=== PATIENT | male | born 1950 | race Caucasian/White ===

== ENCOUNTER → 2018-01-30 | Outpatient (CLI) | payer MEDICARE ==
[~2018-01-30] MED LIST: AMPH30CA6 PO; ARIP10TA33 PO; BUPR150T73 PO; CARB1TAB5 PO; CLON1TAB PO; DOCU-131 PO; ESCI10TA10 PO; EXELON TD; GABA300C PO; LAMO150T3 PO; LOSA100T6 PO; MULT-516 PO; OXYC-307 PO; RASA1TAB2 PO; SENN-87 PO; SOLI10TA2 PO; TAMS-11 PO; TRAZ50TA18 PO; ZOLP10TA PO
[2018-01-30 15:43] LABS: BASOPHILS # (AUTO) 0.03 x10^3/uL (0-0.1); BASOPHILS % (AUTO) 1 % (0-1); EOSINOPHILS # (AUTO) 0.24 x10^3/uL (0-0.4); EOSINOPHILS % (AUTO) 4 % (1-7); LYMPHOCYTES # (AUTO) 1.98 x10^3/uL (1-3.4); LYMPHOCYTES % (AUTO) 29 % (22-44); MD NO; MEAN CORPUSCULAR HEMOGLOBIN 32.2 pg (27.5-34.5); MEAN CORPUSCULAR HGB CONC 33.7 g/dL (33.2-36.2); MEAN CORPUSCULAR VOLUME 95.4 fL (81-97); MEAN PLATELET VOLUME 7.8 fL (7.4-10.4); MONOCYTES # (AUTO) 0.56 x10^3/uL (0.2-0.8); MONOCYTES % (AUTO) 8 % (2-9); NEUTROPHILS # (AUTO) 3.99 x10^3/uL (1.8-6.8); NEUTROPHILS % (AUTO) 59 % (42-75); PLATELET COUNT 243 x10^3/uL (130-400); RED BLOOD COUNT 4.53 x10^6/uL (4.38-5.82); RED CELL DISTRIBUTION WIDTH 15.1 % (9.4-14.8)
[2018-01-30 15:44] LABS: MICROSCOPIC NOT IND
[2018-01-30 15:47] LABS: CULTURE INDICATED? NO
[2018-01-30 15:56] LABS: ALANINE AMINOTRANSFERASE 25 U/L (12-78); ALBUMIN 3.9 g/dL (3.4-5.0); ANION GAP 6 mmol/L (5-15); CHLORIDE 109 mmol/L (98-107)
[2018-01-30 16:04] LABS: ALKALINE PHOSPHATASE 98 U/L (45-117); BILIRUBIN,TOTAL 0.4 mg/dL (0.2-1.0); CREATININE 0.92 mg/dL (0.7-1.3); TOTAL PROTEIN 7.3 g/dL (6.4-8.2)
== END ==
LOC: STAR 14:34
PROVIDERS: ATTEND Orthopaedic Surgery
DX: M17.12 Unilateral primary osteoarthritis, left knee (principal); R79.89 Other specified abnormal findings of blood chemistry
CPT/HCPCS: 36415; 80053; 81003; 85025; 87081; 93005

== ENCOUNTER 2018-02-14 07:48 | Inpatient (IN) | payer MEDICARE ==
[~2018-02-14] VITALS: Ht 177.8 cm; Wt 97.5 kg
[~2018-02-14 07:48] MED LIST changes: +EPINEPHRINE 1 MG/ML, 1ML ONE; +KETOROLAC 60 MG/2 ML ONE; +ROPIvacaine/PF 0.2%, 20 ML ONE; +SODIUM CHLORIDE 0.9% 100 ML ONE; +TRANEXAMIC ACID 100 MG/ML, 10ML ONE
[2018-02-14] MEDS ORDERED: MIDAZOLAM 1 MG/ML, 2ML ONE (08:19)
[2018-02-14] MEDS ORDERED: FENTANYL PF 100 MCG/2ML ONE (08:19)
[2018-02-14] MEDS ORDERED: GABA600T2 PO (08:24)
[2018-02-14] MEDS ORDERED: ARIP15TA3 PO (08:24)
[2018-02-14] MEDS ORDERED: ESCI20TA PO (08:24)
[2018-02-14 08:28] VITALS: BP 118/78
[2018-02-14] MEDS ORDERED: LIDOCAINE-MPF 1%, 2ML ONE (08:33)
[2018-02-14] MEDS: LACTATED RINGERS 1,000 ML IV SCH ×2 (08:44→13:07)
[2018-02-14] MEDS ORDERED: LIDOCAINE-MPF 1%, 2ML INFIL ONE (09:00)
[2018-02-14] MEDS ORDERED: ACETAMINOPHEN 650 MG/20.3 ML UDC PO SCH (09:30)
[2018-02-14] MEDS ORDERED: ONDANSETRON 2MG/ML, 2ML IV PRN (09:30)
[2018-02-14] MEDS ORDERED: PROMETHAZINE 25 MG/ML, 1ML IM PRN (09:30)
[2018-02-14] MEDS ORDERED: SENNA/DOCUSATE TABLET PO PRN (09:30)
[2018-02-14] MEDS ORDERED: MAGNESIUM HYDROXIDE 8%, 30ML UDC PO PRN (09:30)
[2018-02-14] MEDS ORDERED: HYDROmorphone 1 MG/ML, 1ML IV PRN (09:30)
[2018-02-14] MEDS ORDERED: BISACODYL 10 MG SUPP PR PRN (09:30)
[2018-02-14] MEDS ORDERED: DIPHENHYDRAMINE 25 MG CAPSULE PO PRN (09:30)
[2018-02-14] MEDS ORDERED: ALUMINUM/MAG/SIMETHICONE 30 ML UDC PO PRN (09:30)
[2018-02-14] MEDS ORDERED: PROMETHAZINE 12.5 MG SUPP PR PRN (09:30)
[2018-02-14] MEDS ORDERED: ONDANSETRON 4 MG TABLET PO PRN (09:30)
[2018-02-14] MEDS ORDERED: LORazepam 1MG TABLET PO PRN (09:30)
[2018-02-14] MEDS ORDERED: morphine SULFATE 10 MG/ML, 1ML IV PRN (10:00)
[2018-02-14] MEDS ORDERED: ACETAMINOPHEN 325 MG TABLET PO PRN (10:00)
[2018-02-14] MEDS ORDERED: ONDANSETRON 2MG/ML, 2ML IVPush PRN (10:00)
[2018-02-14] MEDS ORDERED: OXYcodone 5 MG/5 ML ORAL.SOL UDC PO PRN (10:00)
[2018-02-14] MEDS ORDERED: FENTANYL PF 100 MCG/2ML IV PRN (10:00)
[2018-02-14] MEDS ORDERED: HYDROcodone/APAP 7.5-325MG/15ML UDC PO PRN (10:00)
[2018-02-14] MEDS ORDERED: TRANEXAMIC ACID 1,000 MG in SODIUM CHLORIDE 0.9% 100 ML IVPB ONE (11:00)
[2018-02-14 13:00] VITALS: BP 138/86
[2018-02-14 13:09] VITALS: BP 138/87
[2018-02-14] MEDS ORDERED: CEFAZOLIN PMX 2GM/50ML 50 ML IVPB SCH (14:00)
[2018-02-14] MEDS: TAMSULOSIN 0.4 MG CAP.ER.24H PO SCH (14:58)
[2018-02-14] MEDS: CEFAZOLIN 2,000 MG in DEXTROSE 5% 50 ML IV SCH ×2 (14:58→21:57)
[2018-02-14] MEDS: D5%-0.45% NACL 1,000 ML IV SCH (14:59)
[2018-02-14] MEDS ORDERED: GABAPENTIN 300 MG CAPSULE PO SCH (16:00)
[2018-02-14] MEDS ORDERED: CEFAZOLIN 1,000 MG ONE (16:11)
[2018-02-14] MEDS ORDERED: DEXAMETHASONE 4 MG/ML, 1ML ONE (16:11)
[2018-02-14] MEDS ORDERED: PROPOFOL 10 MG/ML, 50ML ONE (16:11)
[2018-02-14] MEDS: CARBIDOPA/LEVODOPA CR 50 MG/200 MG TABLET PO SCH ×2 (16:17→21:58)
[2018-02-14] MEDS: GABAPENTIN 300 MG CAPSULE PO SCH ×2 (16:17→21:58)
[2018-02-14] MEDS: OXYcodone IR 5MG TABLET PO PRN ×3 (16:17→21:58)
[2018-02-14] MEDS ORDERED: ACETAMINOPHEN 500 MG TABLET ONE (17:34)
[2018-02-14] MEDS: ASPIRIN 81 MG TABLET EC PO SCH (17:47)
[2018-02-14] MEDS: ACETAMINOPHEN 500 MG TABLET PO SCH (17:47)
[2018-02-14] MEDS ORDERED: ASPIRIN 325 MG TABLET EC PO SCH (18:00)
[2018-02-14 19:11] VITALS: BP 104/63
[2018-02-14] MEDS: DIAZEPAM 5 MG TABLET PO PRN (20:41)
[2018-02-14] MEDS: ADDERALL 30 MG PO SCH (21:00)
[2018-02-14] MEDS ORDERED: LEXAPRO 20 MG PO SCH (21:00)
[2018-02-14] MEDS: OXYBUTYNIN CHLORIDE 5 MG TABLET PO SCH (21:58)
[2018-02-14] MEDS: TRAZODONE 100MG TABLET PO SCH (21:58)
[2018-02-14] MEDS: BUPROPION SR 150 MG TABLET PO SCH (21:58)
[2018-02-14] MEDS: DOCUSATE 100 MG CAPSULE PO SCH (21:59)
[2018-02-14] MEDS: LAMOTRIGINE 100 MG TABLET PO SCH (22:10)
[2018-02-14] MEDS: ZOLPIDEM 5MG TABLET PO PRN (22:10)
[2018-02-14 23:37] VITALS: BP 90/61
[2018-02-15] MEDS: D5%-0.45% NACL 1,000 ML IV SCH ×3 (01:42→20:04)
[2018-02-15] MEDS: ACETAMINOPHEN 500 MG TABLET PO SCH ×3 (01:45→16:17)
[2018-02-15] MEDS: OXYcodone IR 5MG TABLET PO PRN ×6 (02:28→23:05)
[2018-02-15 03:35] VITALS: BP 110/65
[2018-02-15] MEDS: ASPIRIN 81 MG TABLET EC PO SCH ×2 (05:49→16:17)
[2018-02-15] MEDS ORDERED: DEXAMETHASONE 4 MG/ML, 1ML IVPush SCH (06:00)
[2018-02-15 07:53] VITALS: BP 108/65
[2018-02-15] MEDS: OXYBUTYNIN CHLORIDE 5 MG TABLET PO SCH (09:00)
[2018-02-15] MEDS: ADDERALL 30 MG PO SCH ×2 (09:00→15:44)
[2018-02-15] MEDS ORDERED: TEMPLATE NON-FORMULARY MED. (VESICARE 10 MG) PO SCH (09:00)
[2018-02-15] MEDS: RASAGILINE PO SCH (09:00)
[2018-02-15] MEDS: EXELON 13.3 MG TP SCH (09:00)
[2018-02-15] MEDS ORDERED: CITALOPRAM 20 MG TABLET PO SCH (09:00)
[2018-02-15] MEDS: BUPROPION SR 150 MG TABLET PO SCH ×2 (09:13→21:22)
[2018-02-15] MEDS: DOCUSATE 100 MG CAPSULE PO SCH ×2 (09:13→21:22)
[2018-02-15] MEDS: LAMOTRIGINE 100 MG TABLET PO SCH ×2 (09:14→21:29)
[2018-02-15] MEDS: CARBIDOPA/LEVODOPA CR 50 MG/200 MG TABLET PO SCH ×3 (09:15→21:23)
[2018-02-15] MEDS: GABAPENTIN 300 MG CAPSULE PO SCH ×2 (09:15→21:22)
[2018-02-15] MEDS: ARIPIPRAZOLE 15 MG TABLET PO SCH (09:16)
[2018-02-15] MEDS: TAMSULOSIN 0.4 MG CAP.ER.24H PO SCH (09:16)
[2018-02-15] MEDS: MULTIVITAMIN 1 TABLET PO SCH (09:16)
[2018-02-15] MEDS: TRAZODONE 100MG TABLET PO SCH ×2 (09:17→21:29)
[2018-02-15] MEDS: KETOROLAC 30 MG/1 ML IV SCH ×2 (09:27→16:17)
[2018-02-15 12:41] VITALS: BP 110/69
[2018-02-15 19:08] VITALS: BP 119/78
[2018-02-15] MEDS: ZOLPIDEM 5MG TABLET PO PRN (21:29)
[2018-02-16] MEDS: KETOROLAC 30 MG/1 ML IV SCH (02:09)
[2018-02-16] MEDS: ACETAMINOPHEN 500 MG TABLET PO SCH ×2 (02:09→09:41)
[2018-02-16 02:15] VITALS: BP 124/87
[2018-02-16] MEDS: OXYcodone IR 5MG TABLET PO PRN ×2 (03:06→07:07)
[2018-02-16] MEDS: D5%-0.45% NACL 1,000 ML IV SCH (05:36)
[2018-02-16] MEDS: ASPIRIN 81 MG TABLET EC PO SCH (06:12)
[2018-02-16] MEDS: DIAZEPAM 5 MG TABLET PO PRN (06:12)
[2018-02-16 06:38] VITALS: BP 122/71
[2018-02-16] MEDS: CARBIDOPA/LEVODOPA CR 50 MG/200 MG TABLET PO SCH (08:43)
[2018-02-16] MEDS: LAMOTRIGINE 100 MG TABLET PO SCH (08:43)
[2018-02-16] MEDS: ARIPIPRAZOLE 15 MG TABLET PO SCH (08:43)
[2018-02-16] MEDS: TRAZODONE 100MG TABLET PO SCH (08:43)
[2018-02-16] MEDS: GABAPENTIN 300 MG CAPSULE PO SCH (08:43)
[2018-02-16] MEDS: DOCUSATE 100 MG CAPSULE PO SCH (08:44)
[2018-02-16] MEDS: MULTIVITAMIN 1 TABLET PO SCH (08:44)
[2018-02-16] MEDS: BUPROPION SR 150 MG TABLET PO SCH (08:44)
[2018-02-16] MEDS: TAMSULOSIN 0.4 MG CAP.ER.24H PO SCH (08:44)
[2018-02-16] MEDS: RASAGILINE PO SCH (08:53)
[2018-02-16] MEDS: ADDERALL 30 MG PO SCH (08:54)
[2018-02-16] MEDS: EXELON 13.3 MG TP SCH (08:55)
[2018-02-16] MEDS ORDERED: SOLIFENACIN PO SCH (09:00)
[2018-02-16] MEDS ORDERED: ESCITALOPRAM PO SCH (09:00)
[2018-02-16] MEDS ORDERED: OXYC5TAB2 PO (11:22)
[2018-02-16] MEDS ORDERED: TRAM50TA2 PO (11:23)
[2018-02-16] MEDS ORDERED: ACET-76 PO (11:24)
[2018-02-16] MEDS ORDERED: ASPI-496 PO (11:24)
== END 2018-02-16 11:38 | disposition home or self-care (01) | DRG 470 ==
LOC: OUT 07:48 → ORIP 09:11 → 4NOR 12:39 → DCLOUNGE 02-16 11:18
PROVIDERS: ADMIT Orthopaedic Surgery; ATTEND Orthopaedic Surgery
PROC: 0SRD0J9 Replacement of Left Knee Joint with Synthetic Substitute, Cemented, Open Approach (ICD-10-PCS; principal; 2018-02-14 12:00)
DX: M17.12 Unilateral primary osteoarthritis, left knee (principal); G20 Parkinson's disease; F03.90 Unspecified dementia, unspecified severity, without behavioral disturbance, psychotic disturbance, mood disturbance, and anxiety; F31.9 Bipolar disorder, unspecified; I10 Essential (primary) hypertension; N40.0 Benign prostatic hyperplasia without lower urinary tract symptoms; Z88.2 Allergy status to sulfonamides; Z60.2 Problems related to living alone
CPT/HCPCS: 36415; 85018; C1713; J0171; J0690; J1100; J1885; J2250; J2704; J2795; J3010; J3490; C1776; J7120

== ENCOUNTER 2018-02-23 09:23 | Observation (INO) | payer MEDICARE ==
[~2018-02-23] VITALS: Ht 177.8 cm; Wt 91.9 kg
[~2018-02-23 09:23] MED LIST changes: +ACET-76 PO; +ARIP15TA3 PO; +ASPI-496 PO; -EPINEPHRINE 1 MG/ML, 1ML ONE; +ESCI20TA PO; +GABA600T2 PO; -KETOROLAC 60 MG/2 ML ONE; +OXYC5TAB2 PO; -ROPIvacaine/PF 0.2%, 20 ML ONE; -SODIUM CHLORIDE 0.9% 100 ML ONE; +TRAM50TA2 PO; -TRANEXAMIC ACID 100 MG/ML, 10ML ONE
[2018-02-23 10:24] VITALS: BP 117/72
[2018-02-23] MEDS ORDERED: PLEASE ENTER HEIGHT AND WEIGHT MC SCH (10:30)
[2018-02-23] MEDS: D5%-0.45% NACL 1,000 ML IV SCH (10:43)
[2018-02-23 12:12] LABS: BASOPHILS # (AUTO) 0.04 x10^3/uL (0-0.1); BASOPHILS % (AUTO) 1 % (0-1); EOSINOPHILS # (AUTO) 0.28 x10^3/uL (0-0.4); EOSINOPHILS % (AUTO) 3 % (1-7); LYMPHOCYTES # (AUTO) 1.82 x10^3/uL (1-3.4); LYMPHOCYTES % (AUTO) 19 % (22-44); MD NO; MEAN CORPUSCULAR HEMOGLOBIN 32.3 pg (27.5-34.5); MEAN CORPUSCULAR HGB CONC 33.5 g/dL (33.2-36.2); MEAN CORPUSCULAR VOLUME 96.2 fL (81-97); MEAN PLATELET VOLUME 7.3 fL (7.4-10.4); MONOCYTES # (AUTO) 0.83 x10^3/uL (0.2-0.8); MONOCYTES % (AUTO) 9 % (2-9); NEUTROPHILS # (AUTO) 6.46 x10^3/uL (1.8-6.8); NEUTROPHILS % (AUTO) 69 % (42-75); PLATELET COUNT 355 x10^3/uL (130-400); RED BLOOD COUNT 3.44 x10^6/uL (4.38-5.82); RED CELL DISTRIBUTION WIDTH 14.9 % (9.4-14.8)
[2018-02-23] MEDS ORDERED: MIDAZOLAM 1 MG/ML, 2ML ONE (12:24)
[2018-02-23] MEDS ORDERED: BACITRACIN 50,000 UNIT ONE (12:25)
[2018-02-23] MEDS ORDERED: FENTANYL PF 250 MCG/5ML ONE (12:25)
[2018-02-23] MEDS ORDERED: HYDROcodone/APAP 7.5-325MG/15ML UDC PO PRN (12:30)
[2018-02-23] MEDS ORDERED: ACETAMINOPHEN 325 MG TABLET PO PRN (12:30)
[2018-02-23] MEDS ORDERED: LABETALOL 5MG/ML, 20ML IV PRN (12:30)
[2018-02-23] MEDS ORDERED: ONDANSETRON 2MG/ML, 2ML IVPush PRN ×2 (12:30→14:00)
[2018-02-23] MEDS ORDERED: OXYcodone 5 MG/5 ML ORAL.SOL UDC PO PRN (12:30)
[2018-02-23] MEDS ORDERED: FENTANYL PF 100 MCG/2ML IV PRN (12:30)
[2018-02-23] MEDS ORDERED: hydrALAzine 20 MG/ML, 1ML IV PRN (12:30)
[2018-02-23] MEDS ORDERED: morphine SULFATE 10 MG/ML, 1ML IV PRN (12:30)
[2018-02-23] MEDS ORDERED: DEXAMETHASONE 4 MG/ML, 5ML ONE (12:56)
[2018-02-23] MEDS ORDERED: CEFAZOLIN 1,000 MG ONE (12:56)
[2018-02-23] MEDS ORDERED: PROPOFOL 10 MG/ML, 20ML ONE (12:56)
[2018-02-23] MEDS ORDERED: VASOPRESSIN 20 UNIT/ML, 1ML ONE (12:56)
[2018-02-23] MEDS ORDERED: ONDANSETRON 2MG/ML, 2ML ONE (12:56)
[2018-02-23] MEDS ORDERED: LIDOCAINE-MPF 2% ,5ML ONE (12:56)
[2018-02-23] MEDS ORDERED: ZOLPIDEM 10MG TABLET PO PRN (14:00)
[2018-02-23] MEDS ORDERED: PROMETHAZINE 25 MG/ML, 1ML IM PRN (14:00)
[2018-02-23] MEDS ORDERED: morphine SULFATE 10 MG/ML, 1ML IVPush PRN (14:00)
[2018-02-23] MEDS ORDERED: ACETAMINOPHEN 650 MG/20.3 ML UDC ONE (14:21)
[2018-02-23] MEDS ORDERED: OXYcodone 5 MG/5 ML ORAL.SOL UDC ONE (14:22)
[2018-02-23 14:47] VITALS: BP 114/69
[2018-02-23] MEDS: CARBIDOPA/LEVODOPA CR 50 MG/200 MG TABLET PO SCH ×2 (16:09→20:59)
[2018-02-23] MEDS: OXYcodone IR 5MG TABLET PO PRN ×2 (16:14→20:58)
[2018-02-23] MEDS: ACETAMINOPHEN 500 MG TABLET PO SCH (18:14)
[2018-02-23 19:22] VITALS: BP 112/68
[2018-02-23] MEDS: ADDERALL 30MG TAB HOMEMEDPO SCH (20:57)
[2018-02-23] MEDS: LAMOTRIGINE 100 MG TABLET PO SCH (20:58)
[2018-02-23] MEDS: TRAZODONE 50MG TABLET PO SCH (20:58)
[2018-02-23] MEDS: TAMSULOSIN 0.4 MG CAP.ER.24H PO SCH (20:58)
[2018-02-23] MEDS: DOCUSATE 100 MG CAPSULE PO SCH (20:58)
[2018-02-23] MEDS: BUPROPION SR 150 MG TABLET PO SCH (20:58)
[2018-02-23] MEDS: ASPIRIN 81 MG TABLET EC PO SCH (20:58)
[2018-02-23] MEDS: GABAPENTIN 600MG TABLET PO SCH (20:59)
[2018-02-23] MEDS ORDERED: AMPHETAMINE HOMEMEDPO SCH (21:00)
[2018-02-23] MEDS ORDERED: DEXTROAMPHETAMINE HOMEMEDPO SCH (21:00)
[2018-02-24 00:14] VITALS: BP 107/69
[2018-02-24] MEDS: OXYcodone IR 5MG TABLET PO PRN ×3 (01:15→09:26)
[2018-02-24] MEDS: D5%-0.45% NACL 1,000 ML IV SCH (03:40)
[2018-02-24 04:08] VITALS: BP 111/70
[2018-02-24] MEDS: ACETAMINOPHEN 500 MG TABLET PO SCH (05:14)
[2018-02-24 08:18] VITALS: BP 116/56
[2018-02-24] MEDS: ASPIRIN 81 MG TABLET EC PO SCH (08:23)
[2018-02-24] MEDS: DOCUSATE 100 MG CAPSULE PO SCH (08:23)
[2018-02-24] MEDS: CARBIDOPA/LEVODOPA CR 50 MG/200 MG TABLET PO SCH (08:24)
[2018-02-24] MEDS: BUPROPION SR 150 MG TABLET PO SCH (08:24)
[2018-02-24] MEDS: LAMOTRIGINE 100 MG TABLET PO SCH (08:24)
[2018-02-24] MEDS: TAMSULOSIN 0.4 MG CAP.ER.24H PO SCH (08:24)
[2018-02-24] MEDS: TRAZODONE 50MG TABLET PO SCH (08:24)
[2018-02-24] MEDS: GABAPENTIN 600MG TABLET PO SCH (08:25)
[2018-02-24] MEDS: ADDERALL 30MG TAB HOMEMEDPO SCH (08:29)
[2018-02-24] MEDS ORDERED: CITALOPRAM 20 MG TABLET PO SCH (09:00)
[2018-02-24] MEDS ORDERED: LOSARTAN 100 MG PO SCH (09:00)
[2018-02-24] MEDS ORDERED: LOSARTAN 50MG TABLET PO SCH (09:00)
[2018-02-24] MEDS ORDERED: MULTIVITAMIN 1 TABLET PO SCH (09:00)
[2018-02-24] MEDS ORDERED: SOLIFENACIN SUCCINATE PO SCH (09:00)
[2018-02-24] MEDS ORDERED: EXELON 13.3 MG TD SCH (09:00)
[2018-02-24] MEDS ORDERED: ARIPIPRAZOLE 15 MG TABLET PO SCH (09:00)
[2018-02-24] MEDS ORDERED: SENNOSIDES 8.6 MG TABLET PO SCH (09:00)
[2018-02-24] MEDS ORDERED: RASAGILINE MESYLATE PO SCH (09:00)
== END 2018-02-24 11:25 | disposition home or self-care (01) ==
LOC: INTOOBSV 09:53 → 4NOR 09:53
PROVIDERS: ADMIT Orthopaedic Surgery; ATTEND Orthopaedic Surgery
DX: T81.30XA Disruption of wound, unspecified, initial encounter (principal); Y83.8 Other surgical procedures as the cause of abnormal reaction of the patient, or of later complication, without mention of misadventure at the time of the procedure; Y92.89 Other specified places as the place of occurrence of the external cause
CPT/HCPCS: 12020; 36415; 85025; G0378; J0690; J1100; J2250; J2405; J2704; J3010; J3490